=== PATIENT | female | born 1945 | race Caucasian/White ===

== ENCOUNTER 2024-07-20 14:36 | Emergency (ER) | payer MEDICARE, OTHER ==
[2024-07-20 15:14] LABS: BASOPHILS ABSOLUTE AUTO 0.04 K/uL (0.00-0.10); BASOPHILS PERCENT AUTO 0.4 % (0.1-1.3); EOSINOPHILS ABSOLUTE AUTO 0.24 K/uL (0.00-0.40); EOSINOPHILS PERCENT AUTO 2.6 % (0.0-5.4); HEMATOCRIT 46.5 % (34.3-46.0); HEMOGLOBIN 15.5 g/dL (11.2-15.5); IMMATURE GRAN ABSOLUTE AUTO 0.04 K/uL (0.00-0.23); IMMATURE GRAN PERCENT AUTO 0.4 % (0.0-0.7); LYMPHOCYTES PERCENT AUTO 32.3 % (11.4-47.7); MEAN CORPUSCULAR HEMOGLOBIN 28.9 pg (31.6-35.5); MEAN CORPUSCULAR HGB CONC 33.3 g/dL (31.6-35.5); MEAN CORPUSCULAR VOLUME 86.6 fL (81.4-99.0); MONOCYTES ABSOLUTE AUTO 0.52 K/uL (0.20-0.90); MONOCYTES PERCENT AUTO 5.6 % (3.3-12.6); NEUTROPHILS ABSOLUTE AUTO 5.46 K/uL (1.0-7.6); NEUTROPHILS PERCENT AUTO 58.7 % (40.0-78.1); PLATELET COUNT,PLT 185 K/uL (130-375); RED BLOOD CELL COUNT 5.37 M/uL (3.77-5.24); WHITE BLOOD CELL COUNT,WBC 9.3 K/uL (3.2-11.0)
[2024-07-20 15:36] LABS: PROTHROMBIN TIME 10.6 sec (9.2-10.6); PTT,PARTIAL THROMBOPLSTIN TIME 23.7 sec (21.8-27.3)
[2024-07-20 15:38] LABS: A/G RATIO 0.9 (1.2-2.2); ALANINE AMINOTRANSFERASE,ALT 28 U/L (12-78); ALBUMIN 3.4 g/dL (3.4-5.0); ALKALINE PHOSPHATASE 100 U/L (46-116); ASPARTATE AMNIOTRANSFERASE,AST 18 U/L (15-37); BILIRUBIN TOTAL 0.4 mg/dL (0.2-1.0); BLOOD UREA NITROGEN,BUN 10 mg/dL (7-18); CALCIUM 9.1 mg/dL (8.5-10.1); CARBON DIOXIDE,CO2 28 mmol/L (21-32); CHLORIDE,CL 104 mmol/L (100-108); ESTIMATED GFR 57 mL/min (>60); GLUCOSE RANDOM 159 mg/dL (74-106); POTASSIUM,K 3.7 mmol/L (3.6-5.2); SODIUM,NA 142 mmol/L (140-148); TROPONIN I HIGH SENSITIVITY 8.7 pg/mL (<=60.3)
[2024-07-20] MEDS: Sodium Chloride 0.9% 10 ML Syringe FLUSH PRN ×2 (15:54→16:46)
[2024-07-20] MEDS: Ondansetron 4 MG/2 ML SDV IVPUSH ONE (15:54)
[2024-07-20] MEDS: droPERidol 5 MG/2 ML SDV IVPUSH ONE (15:54)
[2024-07-20] MEDS: Sodium Chloride 0.9% 100 ML IV SCH (16:45)
[2024-07-20] MEDS: Iopamidol 755 Mg/ML 100 ML Bottle IV SCH (16:45)
[2024-07-20] MEDS: Clopidogrel 75 MG Tab PO ONE (17:46)
[2024-07-20] MEDS: Sodium Chloride 0.9% 1,000 ML IV SCH (17:46)
[2024-07-20] MEDS: LORazepam 2 MG/ML SDV IVPUSH ONE (17:46)
[2024-07-20] MEDS: Aspirin 325 MG Tab.EC PO SCH (17:46)
== END 2024-07-20 18:50 ==
LOC: JP.ED 14:36
DX: I63.512 Cerebral infarction due to unspecified occlusion or stenosis of left middle cerebral artery (principal); I10 Essential (primary) hypertension; E03.9 Hypothyroidism, unspecified; Z79.899 Other long term (current) drug therapy; Z79.890 Hormone replacement therapy
CPT/HCPCS: 36415; 70450; 70496; 70498; 80053; 84484; 85025; 85610; 85730; 93005; 96374; 96375; 99285; J1790; J2060; J2405; J3490; Q9967; 93010; A9270-GY; J7030